=== PATIENT | male | born 1960 | race Caucasian/White ===

== ENCOUNTER 2018-03-02 06:25 | Day surgery (SDC) | payer BC, SELFPAY ==
[2018-03-02] VITALS (8 sets, daily range): BP systolic 76–127; BP diastolic 43–83; PULSE 51–74; RESP 15–21; TEMP 35.7–36.6; O2SAT 93–98
[2018-03-02] MEDS: Lactated Ringers 1,000 ML 30 ML IV (07:09)
[2018-03-02] MEDS: Bupivacaine 0.25% Pres-Free 30 ML VIAL (08:59)
--- NOTE | 2018-03-02 09:33 | W.PM.OP ---
Date of service: 03/02/18 Time of Service: 08:00 Operative Note DATE OF PROCEDURE: 03/02/18 PRE-OP DIAGNOSIS: Ventral incisional hernia POST-OP DIAGNOSIS: same PROCEDURE: Laparoscopic repair of ventral hernia with mesh SURGEON: Jaime Shepard POLE INCISOR OPERATOR: Carolina Mccormick ANESTHESIA: GETA and local ESTIMATED BLOOD LOSS: 1 PATHOLOGY: none sent COMPLICATIONS: None Patient was transported to: PACU Patient's condition: stable Implants: BARD Ventralight ST mesh with echo Lot #[id number] Indications: 57-year-old male returns to clinic for consideration of ventral hernia repair. He was seen in the fat past and found felt to have a umbilical hernia versus ventral hernia. Ultrasound did show defect superior to the umbilicus approximately 4 cm in greatest diameter, though it was difficult to assess due to body habitus. He had deferred repair at that time to after [employer] . He returns now in consideration of repair of his ventral hernia. Findings: Exploring the anterior abdominal wall laparoscopically 4 cm x 2 cm defect was found in the linea alba with a long axis oriented longitudinally in parallel to l linea alba. This was subsequently patched with a bard ventralight ST round mesh with diameter of 11.4 cm. Procedure Description: The patient was brought to the operating room positioned supine. An endotracheal tube was inserted and sedation was titrated for effect by the PRODUCTION CONTROL PLANNER. All bony prominences are padded the arms were extended 90 degrees. The abdomen was prepped with ChloraPrep block draped in standard sterile fashion. An appropriate timeout was taken reviewing the patient's identification, allergies, medications, procedure, and equipment. I began by making a stab incision in the left upper quadrant at the midclavicular line, subcostally. A Veress needle was then advanced of the abdomen with the position checked by saline drop test. The abdomen was then insufflated to 15 mmHg without apparent incident. A 5 mm trocar was then placed in the left upper quadrant subcostally at the anterior axillary line under direct visualization. The abdomen was inspected 180 degrees, and hernia defect was noted between the umbilicus and the start of the falciform ligament. The hernia sac contained preperitoneal fat which I reduced from the hernia. It was subsequently divided from the hernia sac using a Sonoscission harmonic device. To do this I I did place a 12 mm trocar in the left lower quadrant at the level of the umbilicus and anterior axillary line, again under direct visualization. With the hernia sac reduced, I then took down the falciform ligament to clean off the upper portion of the abdominal wall for about 8 cm. The anterior fat pad was stripped inferiorly to below the umbilicus bluntly, and any dangling fat strands were divided with a Sonoscision and removed from the abdomen. Hemostasis was obtained with a Sonoscision. The anterior abdominal wall cleaned I then measured the defect which I found to be 4 cm x 2 cm. I then chose the Bard ventral light ST with echo deployment round mesh measuring 11.4 cm in diameter. The mesh was soaked in saline briefly, rolled up, and advanced through the 12 mm trocar into the abdomen. The center of the hernia defect had been part marked when the defect was measured. Now a stab incision was made 1 cm above the defect center. A suture passer was advanced at an angle through the stab wound into the center of the hernia under direct visualization. I passed the ring and of the insufflation device for the echo deployment system to the suture passer intra-abdominally. The insufflation catheter was then withdrawn through the stab incision. It was then trimmed appropriately attached to the insufflation syringe and the echo deployment scaffolding was insufflated under direct visualization again. The mesh was pulled snug against the anterior abdominal wall with its center at the center of the hernia defect. A hemostat was then used to clip the insufflation catheter in place and sustain insufflation. I then used a [employer] Reliatack to place an outer row of absorbable tacks circumferentially on the mesh. Once this was done I desufflated the echo scaffolding and cut the insufflation catheter at the skin level. The echo scaffolding was then removed through the 12 mm trocar port without difficulty. I then placed a second row of tacks 2 cm in from the outer row creating a double crown effect. The mesh was in good position and laying flat against the abdominal wall with no defects noted between the tacks and centered on the hernia defect. I then inspected the abdomen I saw no evidence of bleeding the 12 mm trocar fascial defect was closed using [employer]idien trocar insert for fascial closure with an 0 Vicryl suture. The abdomen was then desufflated under direct visualization. Local was infiltrated around all incisions and into the fascia. The patient was extubated in the operating room, and brought to the postanesthesia care unit in good condition. All counts were reported as correct x2.
--- NOTE | 2018-03-02 09:37 | ROE_ITS ---
Date of service: 03/02/18 Time of Service: 08:00 Operative Note DATE OF PROCEDURE: 03/02/18 PRE-OP DIAGNOSIS: Ventral incisional hernia POST-OP DIAGNOSIS: same PROCEDURE: Laparoscopic repair of ventral hernia with mesh SURGEON: Jaime Shepard FUR DRY CLEANER: Carolina Mccormick ANESTHESIA: GETA and local ESTIMATED BLOOD LOSS: 1 PATHOLOGY: none sent COMPLICATIONS: None Patient was transported to: PACU Patient's condition: stable Implants: BARD Ventralight ST mesh with echo Lot #[id number] Indications: 57-year-old male returns to clinic for consideration of ventral hernia repair. He was seen in the fat past and found felt to have a umbilical hernia versus ventral hernia. Ultrasound did show defect superior to the umbilicus approximately 4 cm in greatest diameter, though it was difficult to assess due to body habitus. He had deferred repair at that time to after [employer] . He returns now in consideration of repair of his ventral hernia. Findings: Exploring the anterior abdominal wall laparoscopically 4 cm x 2 cm defect was found in the linea alba with a long axis oriented longitudinally in parallel to l linea alba. This was subsequently patched with a bard ventralight ST round mesh with diameter of 11.4 cm. Procedure Description: The patient was brought to the operating room positioned supine. An endotracheal tube was inserted and sedation was titrated for effect by the [employer] PIPE SUPERVISOR. All bony prominences are padded the arms were extended 90 degrees. The abdomen was prepped with ChloraPrep block draped in standard sterile fashion. An appropriate timeout was taken reviewing the patient's identification, allergies, medications, procedure, and equipment. I began by making a stab incision in the left upper quadrant at the midclavicular line, subcostally. A Veress needle was then advanced of the abdomen with the position checked by saline drop test. The abdomen was then insufflated to 15 mmHg without apparent incident. A 5 mm trocar was then placed in the left upper quadrant subcostally at the anterior axillary line under direct visualization. The abdomen was inspected 180 degrees, and hernia defect was noted between the umbilicus and the start of the falciform ligament. The hernia sac contained preperitoneal fat which I reduced from the hernia. It was subsequently divided from the hernia sac using a Sonoscission harmonic device. To do this I I did place a 12 mm trocar in the left lower quadrant at the level of the umbilicus and anterior axillary line, again under direct visualization. With the hernia sac reduced, I then took down the falciform ligament to clean off the upper portion of the abdominal wall for about 8 cm. The anterior fat pad was stripped inferiorly to below the umbilicus bluntly, and any dangling fat strands were divided with a Sonoscision and removed from the abdomen. Hemostasis was obtained with a Sonoscision. The anterior abdominal wall cleaned I then measured the defect which I found to be 4 cm x 2 cm. I then chose the Bard ventral light ST with echo deployment round mesh measuring 11.4 cm in diameter. The mesh was soaked in saline briefly, rolled up , and advanced through the 12 mm trocar into the abdomen. The center of the hernia defect had been part marked when the defect was measured. Now a stab incision was made 1 cm above the defect center. A suture passer was advanced at an angle through the stab wound into the center of the hernia under direct visualization. I passed the ring and of the insufflation device for the echo deployment system to the suture passer intra-abdominally. The insufflation catheter was then withdrawn through the stab incision. It was then trimmed appropriately attached to the insufflation syringe and the echo deployment scaffolding was insufflated under direct visualization again. The mesh was pulled snug against the anterior abdominal wall with its center at the center of the hernia defect. A hemostat was then used to clip the insufflation catheter in place and sustain insufflation. I then used a Cov[employer]ien Reliatack to place an outer row of absorbable tacks circumferentially on the mesh. Once this was done I desufflated the echo scaffolding and cut the insufflation catheter at the skin level. The echo scaffolding was then removed through the 12 mm trocar port without difficulty. I then placed a second row of tacks 2 cm in from the outer row creating a double crown effect. The mesh was in good position and laying flat against the abdominal wall with no defects noted between the tacks and centered on the hernia defect. I then inspected the abdomen I saw no evidence of bleeding the 12 mm trocar fascial defect was closed using [employer]ien trocar insert for fascial closure with an 0 Vicryl suture. The abdomen was then desufflated under direct visualization. Local was infiltrated around all incisions and into the fascia. The patient was extubated in the operating room, and brought to the postanesthesia care unit in good condition. All counts were reported as correct x2.
--- NOTE | 2018-03-02 10:11 | PDOC.DSDIS_ITS ---
Discharge Plan Disposition Patient Disposition: HOME Condition: Good Discharge Details Reason For Visit: EPIGASTRIC VENTRAL HERNIA Attending Provider: Jaime Shepard Primary Care Provider: Kaushal Noriega Home Meds and New Rx's Prescriptions: New acetaminophen [Tylenol] 325 mg Tablet 650 mg PO Q4H PRN PRNQty: 0 RF: 0 tramadol 50 mg Tablet 50 mg PO Q6H PRN PRNQty: 12 RF: 0 Continue tamsulosin 0.4 MG capsule 0.4 mg PO HS RF: 0 cholecalciferol (vitamin D3) [Vitamin D3] 2,000 UNIT capsule 2,000 unit PO DAILY RF: 0 magnesium oxide 400 MG capsule 400 mg PO DAILY RF: 0 fluticasone 16 GM spray,suspension 1 spr NS PRN PRNRF: 0 atorvastatin 20 MG tablet 20 mg PO DAILY AM RF: 0 amlodipine 5 MG tablet 5 mg PO DAILY AM RF: 0 krill oil 500 MG capsule 1 tab PO DAILY RF: 0 diphenhydramine-acetaminophen [Tylenol PM Extra Strength] 1 EACH tablet 2 tab PO HS RF: 0 Discharge Instructions Instructions: Laparoscopic Herniorrhaphy (DC) Additional Instructions: Dr. Jaime Shepard Post-Operative Discharge Instructions 1. Because there will be medication in your system for the next 24 hours, you may feel a little sleepy. Your coordination will be affected. Therefore: * Do not drive or operate dangerous equipment for 24 hours. * Do not drink alcohol beverages for 24 hours (not even beer). * Plan to go home and rest for the day. Restrictions: * Do not lift over 20lbs for 2 weeks. * No strenuous bending or twisting for 2 weeks, if it hurts stop. * No baths, you can shower. Let warm soapy water run over wound, then pat wound dry. Activity: * The day of surgery spend most of the day resting in a comfortable bed or recliner. 2-3 times during the day get up and walk around the house. * The day after surgery, or after your discharge, walk at least 3 times a day and spend increasing amounts of time walking and sitting up. If you are tired rest, but keep moving as able. * Continue Incentive Spirometry at home if you were performing this therapy in the hospital. Diet: * Resume home diet as tolerated. * Start with a light diet, your appetite will improve with time. * Drink at least 4-6 glasses of water per day to keep hydrated. Wound Care: * Leave skin glue in place until it wears off * You may cover the wound with a dry sterile dressing to keep clothing from rubbing against the wound. Continue all your regular medications unless directed otherwise. Call the office or the [facility] Green Pipefitter , If you have: * Pain not controlled with pain medication. * Nausea and vomiting. * Temperature greater than 101 degrees Fahrenheit. * Drainage from your wound that soaks through your dressing. *No more than 4000 milligrams of Tylenol in 24 hours. Narcotic pain medication can be constipating, if you have not had a bowel movement within 3 days use a laxative, I recommend Milk of Magnesia (MOM) 1oz. every 6 hrs until you have a bowel movement. I understand the above instructions and have no questions. _ Signature of Patient or Responsible Adult Escort Date/Time _ Name of Responsible Adult Escort _ Signature of Nurse Date/Time Revised 08/12/10 Referrals: Jaime Shepard DO [ [facility] STAFF PHYSICIAN] - 03/17/18 10:00 am (Follow up after Lap Ventral hernia repair) Activity:: see instructions Remove Dressings/Wound Care:: Do Not Remove Shower/Bathe:: 24 hours Diet:: As Tolerated Discharge Orders Discharge Orders: Discharge Order (Routine); Ordered 03/02/18 Ordered By: Jaime Shepard DS: Diagnosis Discharge Diagnosis (1) Ventral hernia: Start date: 03/02/18 Start time: 10:09 Status: Acute Asessment and Plan: Laparoscopic Ventral Hernia repair: Operative Note: The patient was brought to the operating room positioned supine. An endotracheal tube was inserted and sedation was titrated for effect by the COMMERCIAL MAKEUP ARTIST. All bony prominences are padded the arms were extended 90 degrees. The abdomen was prepped with ChloraPrep block draped in standard sterile fashion. An appropriate timeout was taken reviewing the patient's identification, allergies, medications, procedure, and equipment. I began by making a stab incision in the left upper quadrant at the midclavicular line, subcostally. A Veress needle was then advanced of the abdomen with the position checked by saline drop test. The abdomen was then insufflated to 15 mmHg without apparent incident. A 5 mm trocar was then placed in the left upper quadrant subcostally at the anterior axillary line under direct visualization. The abdomen was inspected 180 degrees, and hernia defect was noted between the umbilicus and the start of the falciform ligament. The hernia sac contained preperitoneal fat which I reduced from the hernia. It was subsequently divided from the hernia sac using a Sonoscission harmonic device. To do this I I did place a 12 mm trocar in the left lower quadrant at the level of the umbilicus and anterior axillary line, again under direct visualization. With the hernia sac reduced, I then took down the falciform ligament to clean off the upper portion of the abdominal wall for about 8 cm. The anterior fat pad was stripped inferiorly to below the umbilicus bluntly, and any dangling fat strands were divided with a Sonoscision and removed from the abdomen. Hemostasis was obtained with a Sonoscision. The anterior abdominal wall cleaned I then measured the defect which I found to be 4 cm x 2 cm. I then chose the Bard ventral light ST with echo deployment round mesh measuring 11.4 cm in diameter. The mesh was soaked in saline briefly, rolled up , and advanced through the 12 mm trocar into the abdomen. The center of the hernia defect had been part marked when the defect was measured. Now a stab incision was made 1 cm above the defect center. A suture passer was advanced at an angle through the stab wound into the center of the hernia under direct visualization. I passed the ring and of the insufflation device for the echo deployment system to the suture passer intra-abdominally. The insufflation catheter was then withdrawn through the stab incision. It was then trimmed appropriately attached to the insufflation syringe and the echo deployment scaffolding was insufflated under direct visualization again. The mesh was pulled snug against the anterior abdominal wall with its center at the center of the hernia defect. A hemostat was then used to clip the insufflation catheter in place and sustain insufflation. I then used a [employer] Reliatack to place an outer row of absorbable tacks circumferentially on the mesh. Once this was done I desufflated the echo scaffolding and cut the insufflation catheter at the skin level. The echo scaffolding was then removed through the 12 mm trocar port without difficulty. I then placed a second row of tacks 2 cm in from the outer row creating a double crown effect. The mesh was in good position and laying flat against the abdominal wall with no defects noted between the tacks and centered on the hernia defect. I then inspected the abdomen I saw no evidence of bleeding the 12 mm trocar fascial defect was closed using [employer]ien trocar insert for fascial closure with an 0 Vicryl suture. The abdomen was then desufflated under direct visualization. Local was infiltrated around all incisions and into the fascia. The patient was extubated in the operating room, and brought to the postanesthesia care unit in good condition. All counts were reported as correct x2
[2018-03-02] MEDS: Acetaminophen 500 MG TAB 1000 MG PO (10:12)
[2018-03-02] MEDS: traMADol 50 MG TAB PO (11:11)
== END 2018-03-02 11:43 | disposition home or self-care (01) ==
PROVIDERS: PCP Family Medicine; Visit Provider Surgery
PROC: 0WQF4ZZ Repair Abdominal Wall, Percutaneous Endoscopic Approach (ICD-10-PCS; CPT 49654; principal; 2018-03-02 07:30)
DX: K43.9 Ventral hernia without obstruction or gangrene (principal); G47.33 Obstructive sleep apnea (adult) (pediatric); I10 Essential (primary) hypertension
CPT/HCPCS: 49654; C1781; J0690; J1100; J1885; J2405

== ENCOUNTER 2019-05-16 13:02 | Outpatient (REF) | payer BC, SELFPAY ==
[2019-05-16 14:31] LABS: Anion Gap 10.8 mmol/L (3-11); BUN 19 mg/dL (7-18); CO2 25.2 mmol/L (21.0-32.0); CREATININE 0.87 mg/dL (0.70-1.30); Calcium 8.4 mg/dL (8.5-10.1); Calculated LDL 117 mg/dL (<100); Chloride 105 mmol/L (98-107); Cholesterol 183 mg/dL (<200); Glucose 112 mg/dL (74-106); HDL Cholesterol 36 mg/dL (40-60); Potassium 4.3 mmol/L (3.5-5.1); Sodium 141 mmol/L (136-145); Triglyceride 154 mg/dL (<150)
[2019-05-16 15:35] LABS: Hemoglobin A1C 6.1 % (3.8-5.6)
== END 2019-05-16 13:22 ==
LOC: NCHCN 13:02
PROVIDERS: PCP Family Medicine; Visit Provider Family Medicine
DX: I10 Essential (primary) hypertension (principal); E78.5 Hyperlipidemia, unspecified; Z13.1 Encounter for screening for diabetes mellitus
CPT/HCPCS: 80048; 80061; 83036

== ENCOUNTER 2020-06-07 09:12 | Outpatient (CLI) | payer BC, SELFPAY ==
--- NOTE | 2020-06-07 08:45 | DI.RAD_ITS ---
EXAM: XR THUMB RT CLINICAL HISTORY: right thumb. TECHNIQUE: 2D digital imaging was performed. COMPARISON: CR LEFT THUMB from 03/03/2012 FINDINGS: There is no evidence fracture or dislocation. There are mild degenerative changes at the articulatio n between the base of the thumb metacarpal and trapezium. The metacarpophalangeal joint and interpha langeal joint of the thumb appear unremarkable. Bone density is normal. No lytic osseous lesions ev ident.. IMPRESSION: DATA REPOSITORY: RADIATION DOSE DELIVERED:
== END 2020-06-07 09:13 | disposition home or self-care (01) ==
LOC: DIORS 09:12
PROVIDERS: PCP Family Medicine; Referring Provider Family Medicine; Visit Provider Student in an Organized Health Care Education/Training Program
DX: M18.11 Unilateral primary osteoarthritis of first carpometacarpal joint, right hand (principal)
CPT/HCPCS: 73140

== ENCOUNTER 2020-08-24 16:01 | Outpatient (REF) | payer BC, SELFPAY ==
[2020-08-24 16:00] LABS: CREATININE 0.8 mg/dL (0.70-1.30); Magnesium 2.1 mg/dL (1.8-2.4)
[2020-08-24 16:25] LABS: Hemoglobin A1C 5.8 % (<5.7)
== END 2020-08-24 16:02 | disposition home or self-care (01) ==
LOC: NCHCN 16:01
PROVIDERS: PCP Family Medicine; Visit Provider Family Medicine
DX: I10 Essential (primary) hypertension (principal); E83.42 Hypomagnesemia; R73.03 Prediabetes
CPT/HCPCS: 82565; 83036; 83735

== ENCOUNTER 2020-11-05 14:05 | Emergency (ER) | payer BC, SELFPAY ==
[2020-11-05 14:14] VITALS: BP 153/101; PULSE 89; RESP 16; TEMP 36.4; O2SAT 98
--- NOTE | 2020-11-05 14:30 | DI.RAD_ITS ---
Exam(s) XR KNEE LT 4V AP,LAT,LUCERO,PAT EXAM: XR KNEE LT 4V AP,LAT,LUCERO,PAT CLINICAL HISTORY: trauma, left knee pain. TECHNIQUE: 2D digital imaging was performed. COMPARISON: No exams were available for comparison FINDINGS: There is no evidence of acute fracture but there is significant size joint effusion-possible hemarthr osis. This may signify an internal derangement or and/or occult fracture. IMPRESSION: DATA REPOSITORY: RADIATION DOSE DELIVERED:
--- NOTE | 2020-11-05 14:32 | ED.GENADUL_ITS ---
Discharge Plan Disposition Patient Disposition: HOME Condition: Stable Discharge Details Clinical Impression: Closed fracture of tibial plateau Primary Care Provider: Kaushal Noriega ED Provider: Royer Song Home Meds and New Rx's Prescriptions: Continued tamsulosin 0.4 MG capsule 0.4 mg PO HS RF: 0 cholecalciferol (vitamin D3) [Vitamin D3] 2,000 UNIT capsule 2,000 unit PO DAILY RF: 0 magnesium oxide 400 MG capsule 400 mg PO DAILY RF: 0 fluticasone propionate 16 GM spray,suspension 1 spr NS PRN PRNRF: 0 atorvastatin 20 MG tablet 20 mg PO DAILY AM RF: 0 amlodipine 5 MG tablet 5 mg PO DAILY AM RF: 0 krill oil 500 MG capsule 1 tab PO DAILY RF: 0 diphenhydramine-acetaminophen [Tylenol PM Extra Strength] 1 EACH tablet 2 tab PO HS RF: 0 acetaminophen [Tylenol] 325 mg Tablet 650 mg PO Q4H PRN PRNQty: 0 RF: 0 tramadol 50 mg Tablet 50 mg PO Q6H PRN PRNQty: 12 RF: 0 Discharge Instructions Instructions: Leg Fracture (ED), Knee Immobilizer (ED) Additional Instructions: You may be toe-touch weightbearing. Use of crutches and knee immobilizer while awake and out of bed. Apply ice to area to reduce discomfort. Elevate above the level of the heart to reduce pain and swelling. Continue to ice 20 to 30 minutes at a time. Tylenol and/or ibuprofen as needed for pain. I discussed your CT scan with Dr. Loera this evening. Please follow-up with Dr. Loera in clinic. The office #[phone]. Call if you do not hear from them in the next 2 office days. Please return immediately to the emergency department if you develop any new or worsening symptoms, if your condition does not improve as expected, or if you become otherwise concerned. It is extremely important that you call soon as possible to make an appointment to be seen in follow-up for this visit by your primary care doctor and your orthopedic surgeon. Referrals: Cesar Loera MD [ [facility] STAFF PHYSICIAN] - Kaushal Noriega [Primary Care Provider] - Discharge Data Discharge Date/Time-TO BE ENTERED AT DEPARTURE: 11/05/20 17:30 Medical Decision Making <Willa Rockwell MD - Last Filed: 11/12/20 09:45> Kaushal Ledbetter is a 60 y/o man with history of hypertension, hyperlipidemia who presented to emergency department with left knee pain after mechanical fall landing on left knee just prior to arrival. On exam patient is well and nontoxic-appearing. There is tenderness to palpation over the left patella. Effusion of the left knee is present. Left lower extremity is neurovascularly intact. Patient is able to range the left knee, range of motion is somewhat limited secondary to pain. Exam/history at this time is not consistent with vascular injury, DVT, septic arthritis or other acute infectious pathology. Plan for x-rays. X-rays show significant size joint effusion, possible hemarthrosis which may signify internal derangement (I discussed this with radiology, meaning ligamentous injury) and/or occult fracture. Plan for CT need for further evaluation for occult fracture. Patient signed out to Dr. Song at time of shift change with CT knee pending. Medical Records Medical records reviewed: Yes I reviewed the patient's medical records. Imaging Data Radiologic Study: Attestation: I personally reviewed and interpreted this imaging study as follows: Radiologist's impression: EXAM: XR KNEE LT 4V AP,LAT,LUCERO,PAT CLINICAL HISTORY: trauma, left knee pain. TECHNIQUE: 2D digital imaging was performed. COMPARISON: No exams were available for comparison FINDINGS: There is no evidence of acute fracture but there is significant size joint effusion-possible hemarthrosis. This may signify an internal derangement or and/or occult fracture. <Royer Song MD - Last Filed: 11/05/20 16:57> Reviewed CT scan with Dr. Loera with tibial plateau fracture. Will make patient nonweightbearing with toe-touch only, on crutches and knee immobilizer. He will follow-up in orthopedic office. He is stable for outpatient management. HPI <Willa Rockwell MD - Last Filed: 11/12/20 09:45> General Mode of arrival: wheelchair . Date/Time Provider Initiated Documentation: 11/05/20 14:26 . Limitations to Documentation: no limitations . Information obtained by: patient, RN notes reviewed and old records reviewed . HPI Narrative: Kaushal Ledbetter is a 60-year-old man with history of hyperlipidemia, hypertension, obstructive sleep apnea presenting to emergency department with left knee pain. Patient reports that just prior to arrival he was golfing, when he slipped on wet grass and fell, initially landing entirely on his left knee. Patient reports that he did not have pain directly after the fall, but when he went to stand up he felt something move in my knee. Patient reports that he did walk initially, but pain began to increase. Patient reports that knee now seems swollen to him. He reports that all of his pain is in the anterior aspect of his left knee. He denies any other pain, numbness, weakness, any other injury. Patient states that he did not hit his head, no loss of consciousness. Patient states that he was previously in his usual state of health. No fevers, cough, shortness of breath, vomiting, diarrhea, rash. Related Data Home Medications Medication Instructions Recorded Confirmed fluticasone propionate 1 spr NS PRN PRN 02/08/13 11/05/20 amlodipine 5 mg PO DAILY AM 10/15/16 11/05/20 atorvastatin 20 mg PO DAILY AM 10/15/16 11/05/20 diphenhydramine-acetaminophen 2 tab PO HS 10/15/16 11/05/20 [Tylenol PM Extra Strength] krill oil 1 tab PO DAILY 10/15/16 11/05/20 cholecalciferol (vitamin D3) 2,000 unit PO DAILY 08/31/17 11/05/20 [Vitamin D3] magnesium oxide 400 mg PO DAILY 08/31/17 11/05/20 tamsulosin 0.4 mg PO HS tab-cap 08/31/17 11/05/20 acetaminophen [Tylenol] 650 mg PO Q4H PRN PRN #0 tab 03/02/18 11/05/20 tramadol 50 mg PO Q6H PRN PRN #12 tab 03/02/18 11/05/20 Previous Rx's Medication Instructions Recorded acetaminophen [Tylenol] 650 mg PO Q4H PRN PRN #0 tab 03/02/18 tramadol 50 mg PO Q6H PRN PRN #12 tab 03/02/18 Allergies Allergy/AdvReac Type Severity Reaction Status Date / Time No Known Allergies Allergy Unverified 11/05/20 14:19 General Stated Complaint: Orthopedic DENISE: 4 Review of Systems <Willa Rockwell MD - Last Filed: 11/12/20 09:45> Narrative: Constitutional: denies fevers Eyes: denies eye pain ENT: denies ear pain, dental pain, sore throat Cardiovascular: denies chest pain, edema Respiratory: denies SOB, cough GI: denies abdominal pain, vomiting, diarrhea : denies flank pain MSK: denies back pain, neck pain, myalgias, reports left-sided knee pain/swelling Skin: denies rash Neuro: denies headaches, numbness, weakness PFSH <Willa Rockwell MD - Last Filed: 11/12/20 09:45> Medical History Alcohol dependence in remission Arthritis of carpometacarpal (CMC) joint of left thumb Hyperlipidemia Hypertension Hypomagnesemia Impingement syndrome, shoulder, left Obesity JESSICA (obstructive sleep apnea) Pain in joint of left wrist Pain in joint of right wrist Prediabetes Syncope Umbilical hernia Ventricular tachycardia Surgical History Repair of inguinal hernia pt unsure of date/year of surgery.HE S/P ventral herniorrhaphy (03/02/18) dr crowell Social History Smoking/Tobacco Use Status: Former Tobacco Use Smoking risk assessment performed?: Yes Alcohol Intake: former Drug use: Current Sobriety Substance use type: does not use Current gender identity: male Do you feel safe in your relationship?: Yes Exam <Willa Rockwell MD - Last Filed: 11/12/20 09:45> Narrative Exam Narrative: Constitutional: well and [id number], pleasant, conversing normally HENT: head atraumatic/normocephalic/normal inspection, mucous membranes moist Eyes: conjunctiva normal, sclera normal, pupils 3mm b/l Neck: no stridor, normal ROM, trachea midline Chest: normal inspection Resp: normal work of breathing, LCTAB Cardio: normal rate, normal rhythm, no murmur appreciated GI: abdomen soft, non-tender, non-distended Back: normal inspection, no rash Skin: warm, dry, normal color, no rash Neuro: alert, not altered, grossly non-focal, normal tone Ext: no edema Psych: normal mood, normal affect, normal behavior Course <Willa Rockwell MD - Last Filed: 11/12/20 09:45> Vital Signs Vital signs: Vital Signs Temperature 36.4 C L 11/05/20 14:14 Pulse 89 11/05/20 14:14 Respiratory Rate 16 11/05/20 14:14 Blood Pressure 153/101 H 11/05/20 14:14 Pulse Oximetry 98 11/05/20 14:14 Temperature 36.4 C L 11/05/20 14:14 Temperature Source Skin 11/05/20 14:14 Pulse 89 11/05/20 14:14 Respiratory Rate 16 11/05/20 14:14 Respiratory Effort Non-Labored 11/05/20 14:14 Blood Pressure 153/101 H 11/05/20 14:14 Blood Pressure Position Sitting 11/05/20 14:14 Pulse Oximetry 98 11/05/20 14:14 Oxygen Delivery Method Room Air 11/05/20 14:14 Oxygen Flow Rate 0 11/05/20 14:14 Pain Level 5 11/05/20 14:14 Sign Out <Willa Rockwell MD - Last Filed: 11/12/20 09:45> Sign Out Data: Sign Out Comment: Patient signed out to Dr. Song at time of shift change with CT knee pending. Last updated by Willa Rockwell MD at 11/05/20 15:44
--- NOTE | 2020-11-05 15:15 | DI.CT_ITS ---
Exam(s) CT LOWER EXTREMITY LT WO EXAM: CT LOWER EXTREMITY LT WO CLINICAL HISTORY: trauma, knee pain. TECHNIQUE: Imaging Protocol: Axial computed tomography images with coronal and sagittal reformatted images were created and reviewed. COMPARISON: CR XR KNEE LT 4V AP,LAT,LUCERO,PAT from 11/05/2020 FINDINGS: There is a large hemarthrosis. There is soft tissue swelling particularly around the medial aspect o f the knee. There is a nondisplaced fracture extending through the tibial spines. There is a compre ssion at the posterior aspect of the lateral tibial plateau with slight separation at the articular s urface and slight depression. There is a nondisplaced vertically oriented fracture in the sagittal p benoit seen in the posterior tibia extending to the lateral cortex. Distal femur and proximal fibula a ppear intact. IMPRESSION: Posterior lateral tibial plateau fracture with mild depression and separation at the articular surfac e. Nondisplaced fracture through the tibial spines. RADIATION DOSE DELIVERED: 249.97mGy.cm Total DLP DATA REPOSITORY: All CT scans at this facility are submitted to the National Radiology Data Registry (NRDR) Dose Index Registry (DIR) with the [employer] (A[employer]). RADIATION OPTIMIZATION: All CT scans at this facility use at least one of these dose optimization te chniques: automated exposure control; mA and/or kV adjustment per patient size (includes targeted exa ms where dose is matched to clinical indication); or iterative reconstruction.
[2020-11-05 15:16] VITALS: BP 127/88; PULSE 93; RESP 18; O2SAT 95
[2020-11-05] MEDS: Ibuprofen 600 MG TAB PO (15:47)
--- NOTE | 2020-11-05 17:06 | DI.VRAD_ITS ---
PROCEDURE INFORMATION: Exam: CT Left Lower Extremity Without Contrast, Knee Exam date and time: 11/05/2020 4:31 PM Age: 60 years old Clinical indication: Injury or trauma; Fall; Blunt trauma; Left; Patient HX: Trauma, knee pain TECHNIQUE: Imaging protocol: CT of the Left lower extremity without contrast was performed. Exam focused on the knee. COMPARISON: CR XR KNEE LT 4V AP,LAT,LUCERO,PAT 11/05/2020 2:58 PM FINDINGS: Bones/joints: Mildly depressed comminuted intra-articular fracture of the posterolateral tibial plateau. There is a vertical component to the fracture that extends along the posterior cortex of the tibia and terminates in the posterior metadiaphysis. Minimally displaced intra-articular fracture of the medial tibial plateau extending to the base of the anterior tibial spine. Large effusion with a lipohemarthrosis. Marginal osteophytes of the patella. Soft tissues: Markedly heterogeneous appearance of the anterior cruciate ligament, suspicious for full-thickness tear of the ACL which is commonly seen with this patient's pattern of fracture. Marked thickening of the medial soft tissues suspicious for high-grade or full-thickness MCL tear IMPRESSION: 1. Mildly depressed comminuted fracture posterior lateral tibial plateau and minimally displaced intra-articular fracture anteromedial tibial plateau 2. Findings highly suspicious for full-thickness ACL tear and high-grade partial or full-thickness MCL tear 3. Large lipohemarthrosis Dictated and Authenticated by: Stacy Hinojosa MD. Ordering:RUTH Crouch MD
[2020-11-05 17:45] VITALS: BP 127/88; PULSE 93; RESP 18; O2SAT 95
== END 2020-11-05 17:30 | disposition home or self-care (01) ==
PROVIDERS: Emergency Provider Emergency Medicine; PCP Family Medicine
DX: S82.141A Displaced bicondylar fracture of right tibia, initial encounter for closed fracture (principal); W01.0XXA Fall on same level from slipping, tripping and stumbling without subsequent striking against object, initial encounter
CPT/HCPCS: 29505; 99284; 73564; 73700

== ENCOUNTER 2020-11-15 10:55 | Outpatient (CLI) | payer BC, SELFPAY ==
--- NOTE | 2020-11-15 08:15 | DI.RAD_ITS ---
Exam(s) XR KNEE LT 2V AP,LAT EXAM: XR KNEE LT 2V AP,LAT CLINICAL HISTORY: f/u L tibial plateau frx. TECHNIQUE: 2D digital imaging was performed. COMPARISON: CR XR KNEE LT 4V AP,LAT,LUCERO,PAT from 11/05/2020 FINDINGS: Tibial plateau fracture again noted. No further displacement. Joint effusion-hemarthrosis again not ed. No new fractures evident. IMPRESSION: DATA REPOSITORY: RADIATION DOSE DELIVERED:
== END 2020-11-15 10:56 | disposition home or self-care (01) ==
LOC: DIORS 10:56
PROVIDERS: PCP Family Medicine; Referring Provider Family Medicine; Visit Provider Student in an Organized Health Care Education/Training Program
DX: S82.142D Displaced bicondylar fracture of left tibia, subsequent encounter for closed fracture with routine healing (principal)
CPT/HCPCS: 73560

== ENCOUNTER 2020-12-03 09:52 | Outpatient (CLI) | payer BC, SELFPAY ==
--- NOTE | 2020-12-03 09:30 | DI.RAD_ITS ---
Exam(s) XR KNEE LT 2V AP,LAT EXAM: XR KNEE LT 2V AP,LAT CLINICAL HISTORY: CLOSED FRACTURE OF TIBIAL PLATEAU. TECHNIQUE: 2D digital imaging was performed. COMPARISON: CR XR KNEE LT 2V AP,LAT from 11/15/2020 FINDINGS: Compared to 11/15/2020 there is again noted the previously described tibial plateau for fracture. As sociated joint effusion in the suprapatellar bursa is again noted, unchanged. Tibial plateau fractur e of appears to be mostly at level the tibial spines and on the frontal view there is a burning clear orientated subtle nondisplaced line in the lateral aspect of the metaphysis and proximal diaphysis w hich may be a fracture line extension. This is only seen on the frontal view. There is possibly carmen t this is a nutrient artery canal. IMPRESSION: DATA REPOSITORY: RADIATION DOSE DELIVERED:
--- NOTE | 2020-12-03 09:45 | DI.RAD_ITS ---
Exam(s) XR FOOT LT LIMITED EXAM: XR FOOT LT LIMITED CLINICAL HISTORY: s/p fall. TECHNIQUE: 2D digital imaging was performed. COMPARISON: No exams were available for comparison FINDINGS: AP and lateral views reveal no evidence of obvious fracture or diastasis of the Lisfranc joint. No o bvious metatarsal base fractures evident on this limited two view study. No fracture of the phalange s nor more proximal bones noted foot. Inferior calcaneal spur measuring 6 millimeters is noted. The re is no radiopaque foreign body. IMPRESSION: As above. No obvious fracture evident on this limited two view study (there is no oblique view). DATA REPOSITORY: RADIATION DOSE DELIVERED:
== END 2020-12-03 09:53 | disposition home or self-care (01) ==
PROVIDERS: PCP Family Medicine; Referring Provider Family Medicine; Visit Provider Physician Assistant Surgical
DX: M77.32 Calcaneal spur, left foot (principal); S82.142D Displaced bicondylar fracture of left tibia, subsequent encounter for closed fracture with routine healing; W19.XXXD Unspecified fall, subsequent encounter
CPT/HCPCS: 73560; 73620

== ENCOUNTER 2020-12-31 09:54 | Outpatient (CLI) | payer BC, SELFPAY ==
--- NOTE | 2020-12-31 09:30 | DI.RAD_ITS ---
Exam(s) XR KNEE LT 2V AP,LAT EXAM: XR KNEE LT 2V AP,LAT INDICATION: L TIBIAL PLATEAU FRACTURE. COMPARISON: CR XR KNEE LT 2V AP,LAT from 11/15/2020 CR XR KNEE LT 2V AP,LAT from 11/15/2020 CR XR KNEE LT 2V AP,LAT from 12/03/2020 TECHNIQUE: 2D digital imaging was performed. FINDINGS: The fractureat the tibial spines is faintly visible. There has been increased healing when compared with previous exam. A small joint effusion remains present. DATA REPOSITORY: RADIATION DOSE DELIVERED:
== END 2020-12-31 09:55 | disposition home or self-care (01) ==
LOC: DIORS 09:54
PROVIDERS: PCP Family Medicine; Referring Provider Family Medicine; Visit Provider Physician Assistant
DX: S82.142D Displaced bicondylar fracture of left tibia, subsequent encounter for closed fracture with routine healing (principal); X58.XXXD Exposure to other specified factors, subsequent encounter
CPT/HCPCS: 73560

== ENCOUNTER 2021-01-28 10:07 | Outpatient (CLI) | payer BC, SELFPAY ==
--- NOTE | 2021-01-28 09:45 | DI.RAD_ITS ---
Exam(s) XR KNEE LT 2V AP,LAT EXAM: XR KNEE LT 2V AP,LAT CLINICAL HISTORY: f/u L tibial plateau frx TECHNIQUE: COMPARISON: CR XR KNEE LT 2V AP,LAT from 12/31/2020 FINDINGS: Two views were obtained. Previous described fracture of the proximal tibia is again noted, no gross interval change in alignment of fracture fragments comparison with examination December 31. IMPRESSION: RADIATION DOSE DELIVERED: Total DLP
== END 2021-01-28 10:08 | disposition home or self-care (01) ==
LOC: DIORS 10:08
PROVIDERS: PCP Family Medicine; Referring Provider Family Medicine; Visit Provider Student in an Organized Health Care Education/Training Program
DX: S82.141D Displaced bicondylar fracture of right tibia, subsequent encounter for closed fracture with routine healing (principal)
CPT/HCPCS: 73560

== ENCOUNTER 2021-12-30 17:31 | Outpatient (REF) | payer BC, SELFPAY ==
[2021-12-30 20:54] LABS: CREATININE 1.1 mg/dL (0.70-1.30); Estimated GFR 75.43 (mL/min/1.73m2); Magnesium 2.1 mg/dL (1.8-2.4)
[2021-12-31 18:14] LABS: PSA, Screening 5.6 ng/mL (<=4.5)
== END 2021-12-30 17:32 | disposition home or self-care (01) ==
LOC: NCHCN 17:31
PROVIDERS: PCP Family Medicine; Visit Provider Family Medicine
DX: E83.42 Hypomagnesemia (principal); Z00.00 Encounter for general adult medical examination without abnormal findings; Z12.5 Encounter for screening for malignant neoplasm of prostate; R39.89 Other symptoms and signs involving the genitourinary system; I10 Essential (primary) hypertension
CPT/HCPCS: 84153; 82565; 83735

== ENCOUNTER 2022-02-03 11:18 | Outpatient (CLI) | payer BC, SELFPAY ==
--- NOTE | 2022-02-03 11:00 | DI.RAD_ITS ---
Exam(s) XR KNEE RT 3V AP,LAT,LUCERO EXAM: XR KNEE RT 3V AP,LAT,LUCERO CLINICAL HISTORY: eval R knee pain and swelling. TECHNIQUE: 2D digital imaging was performed of the right knee. Three views obtained. AP, lateral an d PA tunnel views were obtained. COMPARISON: None. FINDINGS: BONES: No acute fracture is present. No bony destructive lesion is seen. JOINTS: The knee is normally aligned. There is a small joint effusion. Mild degenerative changes are seen in the right knee with periarticular spurring in the medial femoral tibial and patellofemoral j oint. SOFT TISSUE: Normal. IMPRESSION: Mild degenerative changes of the right knee. DATA REPOSITORY: RADIATION DOSE DELIVERED:
== END 2022-02-03 11:19 | disposition home or self-care (01) ==
LOC: DIORS 11:18
PROVIDERS: PCP Family Medicine; Referring Provider Family Medicine; Visit Provider Student in an Organized Health Care Education/Training Program
DX: M17.11 Unilateral primary osteoarthritis, right knee (principal)
CPT/HCPCS: 73562

== ENCOUNTER 2022-03-26 08:36 | Day surgery (SDC) | payer BC, SELFPAY ==
[2022-03-26] VITALS (10 sets, daily range): BP systolic 127–200; BP diastolic 76–116; PULSE 60–83; RESP 12–18; TEMP 36–36.5; TEMPC 36; O2SAT 94–97; BMI 35.1
--- NOTE | 2022-03-26 07:40 | PDOC.DSDIS_ITS ---
Date of service: 03/26/22 Time of Service: 10:28 Discharge Plan Disposition Patient Disposition: Home Discharge Details Reason For Visit: Right [facility] DJD Attending Provider: Cesar Loera Primary Care Provider: Kaushal Noriega Home Meds and New Rx's Prescriptions: New acetaminophen 500 mg tablet 500 mg PO Q6H PRN (Reason: pain) Qty: 60 2RF ibuprofen 600 mg tablet 600 mg PO TID PRN (Reason: pain) Qty: 60 0RF oxycodone 5 mg tablet 5 mg PO Q6H PRN (Reason: severe post-operative pain) Qty: 6 0RF Rx Instructions: Take one tablet up to every 6 hours as needed for severe pain Continued tamsulosin 0.4 MG capsule 0.4 mg PO HS fluticasone propionate 16 GM spray,suspension 1 spr NS PRN PRN atorvastatin 20 MG tablet 20 mg PO DAILY AM amlodipine 5 MG tablet 5 mg PO DAILY AM diphenhydramine-acetaminophen [Tylenol PM Extra Strength] 1 EACH tablet 2 tab PO HS Discontinued ibuprofen 600 mg tablet 600 mg PO Q8H PRN acetaminophen [Tylenol] 325 mg Tablet 650 mg PO Q4H PRN PRNQty: 0 0RF No Action naproxen sodium [Aleve] 220 mg Tablet 440 mg PO BID PRN Discharge Instructions Additional Instructions: Thumb [facility] Discharge Instructions Activity: You should keep the hand/thumb elevated as much as possible for the first few days. You may use the other fingers as tolerated but avoid trying to do too much too soon. You may perform light activities with the splint in place. Dressing/Cast: Your splint should stay in place at all times. Do NOT get it wet. You may loosen the EBENEZER wrap if you feel it is too tight and then rewrap more loosely. Medications: - You should take Tylenol and Ibuprofen for baseline pain control. - You have Oxycodone for breakthrough pain. - You may apply ice over the thumb. Follow-up: 10-14 days Stand Alone Forms: Anesthesia Discharge Inst., Analisa Mcfarland ([facility]) Referrals: Cesar Loera MD [ [facility] STAFF PHYSICIAN] - Equipment/Supplies: Splint Activity:: Elevate Remove Dressings/Wound Care:: Do Not Remove Shower/Bathe:: Cover Diet:: As Tolerated Discharge Orders Discharge Orders: Discharge Order (Routine); Ordered 03/26/22 Ordered By: [place]ale [place]
--- NOTE | 2022-03-26 09:23 | ANES.PREOP_ITS ---
General Info Height: 5 ft 9 in Surgical Procedure: Operation Date: 03/26/22 10:55 Proposed Procedure Side Surgeon p Thumb CMC Arthroplasty Right Cesar Loera MD Meds Allergies and Home Medications Allergies Allergy/AdvReac Type Severity Reaction Status Date / Time No Known Allergies Allergy Verified 02/24/22 09:51 Home Medication Medication Instructions Recorded fluticasone propionate 50 1 spr NS PRN PRN 02/08/13 mcg/actuation nasal spray,suspension amlodipine 5 mg tablet 5 mg PO DAILY AM 10/15/16 atorvastatin 20 mg tablet 20 mg PO DAILY AM 10/15/16 diphenhydramine 25 2 tab PO HS 10/15/16 mg-acetaminophen 500 mg tablet (Tylenol PM Extra Strength) tamsulosin 0.4 mg capsule 0.4 mg PO HS 08/31/17 acetaminophen 500 mg tablet 500 mg PO Q6H PRN pain #60 tabs 03/26/22 ibuprofen 600 mg tablet 600 mg PO TID PRN pain #60 tabs 03/26/22 oxycodone 5 mg tablet 5 mg PO Q6H PRN severe 03/26/22 post-operative pain #6 tabs Current Visit Medications: Current Medications Generic Name Dose Route Start Last Admin Trade Name Freq PRN Reason Stop Dose Admin Acetaminophen 650 mg 03/26/22 07:40 Acetaminophen 325 Mg Tab PO Q4H PRN PRN Ringer's Solution 1,000 mls @ 80 mls/hr 03/26/22 06:00 IV 04/24/22 23:59 INFUSION EILEEN Cefazolin Sodium/Dextrose 2 gm in 50 mls @ 100 mls/hr 03/26/22 06:00 Ancef Duplex IVPB 03/26/22 16:00 PREOP [facility] IV Miscellaneous Supplies 1 each 03/26/22 06:00 Iv Access IV 04/24/22 23:59 DIRECTED EILEEN Oxycodone HCl 5 mg 03/26/22 07:40 Oxycodone 5 Mg Tab PO Q3H PRN PRN Pain Sodium Chloride 0 ml 03/26/22 06:00 Normal Saline Flush 10 Ml Syr IV 04/24/22 23:59 PRN PRN Sodium Chloride 0 ml 03/26/22 06:00 Normal Saline 10 Ml Vial IJ 04/24/22 23:59 DIRECTED PRN Sterile Water 0 ml 03/26/22 06:00 Water,Injection,Sterile 10 Ml Vial IJ 04/24/22 23:59 DIRECTED PRN [facility] Active Problems Active Problems: Problem Status Onset Code Lower urinary tract symptoms (LUTS) R39.9 Elevated PSA R97.20 Internal derangement of right knee M23.91 Right knee pain M25.561 Closed fracture of tibial plateau 11/05/20 S82.143A Arthritis of carpometacarpal (CMC) joint of right thumb M18.11 Arthritis of carpometacarpal (CMC) joint of left thumb M18.12 Rotator cuff impingement syndrome of left shoulder M75.42 Ventral hernia K43.9 Medical History Medical History (Updated 03/11/22 @ 11:36 by Lay Ye RN) Alcohol dependence in remission Genital warts Hyperlipidemia Hypertension Hypomagnesemia Impingement syndrome, shoulder, left Obesity JESSICA (obstructive sleep apnea) Pain in joint of left wrist Pain in joint of right wrist Prediabetes Skin lesion of face Syncope Umbilical hernia Venous rodriguez of lip Ventricular tachycardia Surgical History Surgical History (Updated 03/11/22 @ 11:36 by Lay Ye RN) History of vasectomy (~2003) Repair of inguinal hernia (~2021) pt unsure of date/year of surgery.HE S/P ventral herniorrhaphy (03/02/18) dr crowell Tobacco Smoking/Tobacco Use Status: Former Tobacco Use Alcohol Alcohol Intake: former Substance Use Substance use: Current Sobriety Substance use type: does not use Vital Signs and Lab Results Lab Results Blood Type / Crossmatch: No Data to Display Complete Blood Count: No Data to Display Complete Metabolic Panel: No Data to Display Liver Function Panel: No Data to Display Coagulation Panel: No Data to Display Cardiac Panel: No Data to Display Arterial Blood Gas: No Data to Display Venous Blood Gas: No Data to Display Pancreas Panel: No Data to Display Thyroid Panel: No Data to Display Infectious Disease: No Data to Display Blood Cultures: No Data to Display Toxicology Panel: No Data to Display Imaging and Studies Imaging and Studies Study information below may be from another EMR and interpreted by another provider. Please see original notes in EMR for more complete details. Echocardiogram Summary: *STUDY CONCLUSIONS* Summary: 1. Left ventricle: The cavity size was normal. Systolic function was normal. The estimated ejection fraction was 55-60%. 2. Mitral valve: There was mild regurgitation. 3. Left atrium: The atrium was moderately dilated. 4. Right ventricle: The cavity size was normal. Wall thickness was normal. Systolic function was normal. 5. Right atrium: The atrium was moderately dilated. 6. Atrial septum: No defect or patent foramen ovale was identified. 7. Pulmonary arteries: Pulmonary systolic pressure was in the range of 25mm Hg to 35mm Hg. 8. Inferior vena cava: The vessel was patent and normal in size. The respirophasic diameter changes were in the normal range (greater than or equal to 50%), consistent with normal central venous pressure. Anesthesia Assessment and Plan Anesthesia History Personal History: No History of Anesthesia Complications Family History: No Family History of Anesthesia Complications Exercise Tolerance Exercise Tolerance: Metabolic Equivalents>4 Pertinent Negatives Pertinent Negatives: No Symptoms of GERD, No Major Pulmonary Symptoms or Complaints and No History of CVA/TIA Cardiac & Pulmonary Exam Cardiac Exam: Normal S1/S2 Heart Sounds Pulmonary Exam: Clear Bilateral Breath Sounds Implantable Cardiac Device Does patient have a Pacemaker or an ICD?: No Airway Exam Known Difficult Airway: No Mallampati Class: 2 Mouth Opening: Normal (> 3cm) Thyromental Distance: Greater than 3 cm Neck Range of Motion: Full ROM Neck Circumference: Normal Teeth Condition: Removable Dentures/Plates Upper and Removable Dentures/Plates Lower ASA Classification ASA Score: ASA 3 Emergency Case?: No NPO Status NPO Status: NPO Clears >2 hours, Solids >8 hours Anesthesia Plan Resuscitation Status: Full Code Anesthesia Technique: General Anesthesia Airway Planned: LMA Monitors Used: Standard Monitors
[2022-03-26] MEDS: Lactated Ringers 1,000 ML 80 ML IV (09:50)
--- NOTE | 2022-03-26 09:54 | W.PM.HP.N ---
Date of service: 03/26/22 Time of Service: 10:15 Assessment and Plan Assessment and plan (1) Arthritis of carpometacarpal (CMC) joint of right thumb: Status: Acute Assessment and plan: Plan: He denies any recent Covid-19 infection. Educated patient on surgery covering surgical technique, recovery process, benefits and risks including but not limited to risk of infection, blood clot, damage to soft tissue/blood vessels/nerves in detail. After discussion patient gives verbal understanding of risks and elects to proceed with scheduling surgery. Patient had opportunity to have questions answered to their satisfaction. They will contact office if issues arise. Patient will continue to be scheduled for right CMC arthroplasty with Dr. Loera History of Present Illness Narrative: Mr. Ledbetter is a 61-year-old male who presents to hospital for right CMC DJD for surgical intervention. Reports he has continued to have discomfort along the right thumb for several years. Has tried to manage symptoms by previously having an injection on 11/11/21 which provided partial relief and by modifying activity. Due to his continued pain and known DJD he was offered and elected to proceed with surgery. Review of Systems Cardiovascular Cardiovascular: Denies chest pain, Denies rapid heart rate, Denies irregular heart rhythm, Denies dyspnea, Denies dyspnea on exertion and Denies slow heart rate Respiratory Respiratory: Denies cough, Denies dyspnea, Denies dyspnea on exertion and Denies wheezing Allergic/Immunologic Allergic/Immunologic: Denies wheezing PFSH All Active Problems (Updated 03/26/22 @ 09:33 by Nidia Bryant) Ventral hernia (Acute) Rotator cuff impingement syndrome of left shoulder (Acute) Arthritis of carpometacarpal (CMC) joint of left thumb (Acute) Arthritis of carpometacarpal (CMC) joint of right thumb (Acute) Right knee pain (Acute) Internal derangement of right knee (Acute) Elevated PSA (Acute) Lower urinary tract symptoms (LUTS) (Acute) Medical History (Updated 03/26/22 @ 09:33 by Nidia Bryant) Alcohol dependence in remission Genital warts Hyperlipidemia Hypertension Hypomagnesemia Impingement syndrome, shoulder, left Obesity JESSICA (obstructive sleep apnea) Pain in joint of left wrist Pain in joint of right wrist Prediabetes Skin lesion of face Syncope Umbilical hernia Venous rodriguez of lip Ventricular tachycardia pt doesnt remember this Surgical History History of vasectomy (~2003) Hx of colonoscopy Hx of thumb surgery left Repair of inguinal hernia (~2021) pt unsure of date/year of surgery.HE S/P ventral herniorrhaphy (03/02/18) dr crowell Social History Smoking/Tobacco Use Status: Former Tobacco Use Quit Date: 04/20/05 Smoking risk assessment performed?: Yes Alcohol Intake: former Drug use: Current Sobriety Substance use type: does not use Current gender identity: male Do you feel safe at home: Yes Do you feel safe in your relationship?: Yes Meds Allergies and Home Medications Allergies Allergy/AdvReac Type Severity Reaction Status Date / Time No Known Allergies Allergy Verified 03/26/22 09:29 Home Medications Medication Instructions Recorded Confirmed Type fluticasone propionate 50 1 spr NS PRN PRN 02/08/13 03/26/22 History mcg/actuation nasal spray,suspension amlodipine 5 mg tablet 5 mg PO DAILY AM 10/15/16 03/26/22 History atorvastatin 20 mg tablet 20 mg PO DAILY AM 10/15/16 03/26/22 History diphenhydramine 25 2 tab PO HS 10/15/16 03/26/22 History mg-acetaminophen 500 mg tablet (Tylenol PM Extra Strength) tamsulosin 0.4 mg capsule 0.4 mg PO HS 08/31/17 03/26/22 History acetaminophen 500 mg tablet 500 mg PO Q6H PRN pain #60 tabs 03/26/22 Rx ibuprofen 600 mg tablet 600 mg PO TID PRN pain #60 tabs 03/26/22 Rx naproxen sodium 220 mg tablet 440 mg PO BID PRN 03/26/22 03/26/22 History (Aleve) oxycodone 5 mg tablet 5 mg PO Q6H PRN severe 03/26/22 Rx post-operative pain #6 tabs Exam Const General: cooperative and no acute distress Resp Effort & Inspection: normal respiratory effort and able to speak in complete sentences Auscultation: clear to auscultation bilaterally, no rales, no rhonchi and no wheezes Cardio Heart Sounds: S1 normal, S2 normal, no murmurs and no rubs Results Last Vital Signs Temp 97.7 F 03/26/22 09:28 Pulse 83 03/26/22 09:28 Resp 15 03/26/22 09:28 BP 127/90 03/26/22 09:28 Pulse Ox 97 03/26/22 09:28
--- NOTE | 2022-03-26 10:16 | W.ANESPRE ---
General Info Date of Service Date Performed: 03/26/22 Height: 5 ft 9 in Weight: 107.9 kg Body Mass Index (BMI): 35.1 Surgical Procedure: Operation Date: 03/26/22 10:55 Proposed Procedure Side Surgeon p Thumb CMC Arthroplasty Right Cesar Loera MD Meds Allergies and Home Medications Allergies Allergy/AdvReac Type Severity Reaction Status Date / Time No Known Allergies Allergy Verified 03/26/22 09:29 Home Medication Medication Instructions Recorded fluticasone propionate 50 1 spr NS PRN PRN 02/08/13 mcg/actuation nasal spray,suspension amlodipine 5 mg tablet 5 mg PO DAILY AM 10/15/16 atorvastatin 20 mg tablet 20 mg PO DAILY AM 10/15/16 diphenhydramine 25 2 tab PO HS 10/15/16 mg-acetaminophen 500 mg tablet (Tylenol PM Extra Strength) tamsulosin 0.4 mg capsule 0.4 mg PO HS 08/31/17 acetaminophen 500 mg tablet 500 mg PO Q6H PRN pain #60 tabs 03/26/22 ibuprofen 600 mg tablet 600 mg PO TID PRN pain #60 tabs 03/26/22 naproxen sodium 220 mg tablet 440 mg PO BID PRN 03/26/22 (Aleve) oxycodone 5 mg tablet 5 mg PO Q6H PRN severe 03/26/22 post-operative pain #6 tabs Current Visit Medications: Current Medications Generic Name Dose Route Start Last Admin Trade Name Freq PRN Reason Stop Dose Admin Acetaminophen 650 mg 03/26/22 07:40 Acetaminophen 325 Mg Tab PO Q4H PRN PRN Ringer's Solution 1,000 mls @ 80 mls/hr 03/26/22 06:00 03/26/22 09:50 IV 04/24/22 23:59 80 mls/hr INFUSION EILEEN Administration Cefazolin Sodium/Dextrose 2 gm in 50 mls @ 100 mls/hr 03/26/22 06:00 Ancef Duplex IVPB 03/26/22 16:00 PREOP EILEEN IV Miscellaneous Supplies 1 each 03/26/22 06:00 Iv Access IV 04/24/22 23:59 DIRECTED EILEEN Oxycodone HCl 5 mg 03/26/22 07:40 Oxycodone 5 Mg Tab PO Q3H PRN PRN Pain Sodium Chloride 0 ml 03/26/22 06:00 Normal Saline Flush 10 Ml Syr IV 04/24/22 23:59 PRN PRN Sodium Chloride 0 ml 03/26/22 06:00 Normal Saline 10 Ml Vial IJ 04/24/22 23:59 DIRECTED PRN Sterile Water 0 ml 03/26/22 06:00 Water,Injection,Sterile 10 Ml Vial IJ 04/24/22 23:59 DIRECTED PRN PFSH Active Problems Active Problems: Problem Status Onset Code Ventral hernia K43.9 Rotator cuff impingement syndrome of left shoulder M75.42 Arthritis of carpometacarpal (CMC) joint of left thumb M18.12 Arthritis of carpometacarpal (CMC) joint of right thumb M18.11 Closed fracture of tibial plateau 11/05/20 S82.143A Right knee pain M25.561 Internal derangement of right knee M23.91 Elevated PSA R97.20 Lower urinary tract symptoms (LUTS) R39.9 Medical History Medical History (Updated 03/26/22 @ 09:33 by Nidia Bryant) Alcohol dependence in remission Genital warts Hyperlipidemia Hypertension Hypomagnesemia Impingement syndrome, shoulder, left Obesity JESSICA (obstructive sleep apnea) Pain in joint of left wrist Pain in joint of right wrist Prediabetes Skin lesion of face Syncope Umbilical hernia Venous rodriguez of lip Ventricular tachycardia pt doesnt remember this Surgical History Surgical History History of vasectomy (~2003) Hx of colonoscopy Hx of thumb surgery left Repair of inguinal hernia (~2021) pt unsure of date/year of surgery.HE S/P ventral herniorrhaphy (03/02/18) dr crowell Tobacco Smoking/Tobacco Use Status: Former Tobacco Use Alcohol Alcohol Intake: former Substance Use Substance use: Current Sobriety Substance use type: does not use Vital Signs and Lab Results Vital Signs Most Recent Vital Signs in EMR: Most Recent Vital Signs Temp Pulse Resp BP Pulse Ox 36.5 C 83 15 127/90 97 03/26/22 09:28 03/26/22 09:28 03/26/22 09:28 03/26/22 09:28 03/26/22 09:28 Lab Results Blood Type / Crossmatch: No Data to Display Complete Blood Count: No Data to Display Complete Metabolic Panel: No Data to Display Liver Function Panel: No Data to Display Coagulation Panel: No Data to Display Cardiac Panel: No Data to Display Arterial Blood Gas: No Data to Display Venous Blood Gas: No Data to Display Pancreas Panel: No Data to Display Thyroid Panel: No Data to Display Infectious Disease: No Data to Display Blood Cultures: No Data to Display Toxicology Panel: No Data to Display Imaging and Studies Imaging and Studies Study information below may be from another EMR and interpreted by another provider. Please see original notes in EMR for more complete details. Echocardiogram Summary: *STUDY CONCLUSIONS* Summary: 1. Left ventricle: The cavity size was normal. Systolic function was normal. The estimated ejection fraction was 55-60%. 2. Mitral valve: There was mild regurgitation. 3. Left atrium: The atrium was moderately dilated. 4. Right ventricle: The cavity size was normal. Wall thickness was normal. Systolic function was normal. 5. Right atrium: The atrium was moderately dilated. 6. Atrial septum: No defect or patent foramen ovale was identified. 7. Pulmonary arteries: Pulmonary systolic pressure was in the range of 25mm Hg to 35mm Hg. 8. Inferior vena cava: The vessel was patent and normal in size. The respirophasic diameter changes were in the normal range (greater than or equal to 50%), consistent with normal central venous pressure. Anesthesia Assessment and Plan Anesthesia History Personal History: No History of Anesthesia Complications Family History: No Family History of Anesthesia Complications Exercise Tolerance Exercise Tolerance: Metabolic Equivalents>4 Pertinent Negatives Pertinent Negatives: No Symptoms of GERD, No Major Cardiovascular Symptoms or Complaints and No Major Pulmonary Symptoms or Complaints Cardiac & Pulmonary Exam Cardiac Exam: Normal S1/S2 Heart Sounds Pulmonary Exam: Clear Bilateral Breath Sounds Implantable Cardiac Device Does patient have a Pacemaker or an ICD?: No Airway Exam Known Difficult Airway: No Mallampati Class: 2 Mouth Opening: Normal (> 3cm) Thyromental Distance: Greater than 3 cm Neck Range of Motion: Full ROM Neck Circumference: Normal Teeth Condition: Removable Dentures/Plates Upper and Removable Dentures/Plates Lower ASA Classification ASA Score: ASA 2 Emergency Case?: No NPO Status NPO Status: NPO Clears >2 hours, Solids >8 hours Anesthesia Plan Resuscitation Status: Full Code Anesthesia Technique: General Anesthesia Airway Planned: LMA Monitors Used: Standard Monitors
[2022-03-26] MEDS: ceFAZolin 2 GM/50 ML BAG IVPB (11:28)
[2022-03-26] MEDS: Bupivacaine 0.25% Pres-Free 30 ML VIAL (11:44)
--- NOTE | 2022-03-26 12:45 | DI.RAD_ITS ---
Exam(s) XR WRIST RT COMPLETE EXAM: XR WRIST RT COMPLETE CLINICAL HISTORY: cmc wrist TECHNIQUE: 2D and realtime digital imaging was performed. COMPARISON: No exams were available for comparison FINDINGS: C-arm fluoroscopy was utilized by Dr. Loera. Please see the procedure note. Hard copy shows need le placement overlying the greater multangular 1st metacarpal joint. IMPRESSION: RADIATION DOSE DELIVERED: Jacob,r=0.0024 mGy Total DLP
--- NOTE | 2022-03-26 13:01 | ROE_ITS ---
Date of service: 03/26/22 Time of Service: 12:20 Operative Note Operative Note DATE OF PROCEDURE: 03/26/22 PRE-OP DIAGNOSIS: Right Thumb CMC Arthritis POST-OP DIAGNOSIS: same PROCEDURE: Right trapezial resection arthroplasty with suture suspensionplasty SURGEON: Cesar Loera EQUAL OPPORTUNITY COUNSELOR: [place] ANESTHESIA TYPE: General LMA/ETT Refer to Anesthesia Record ESTIMATED BLOOD LOSS: 5 PATHOLOGY: none sent TOURNIQUET TIME: 25 COMPLICATIONS: None Patient was transported to: PACU Patient's condition: stable Indications: Kaushal is a 61 year old male who has had symptoms of thumb CMC arthritis with pain and decreased mobility. Nonoperative treatment options had been trialed. Given their failure, I offered operative intervention. I reviewed the technical details. I reviewed the risk of the procedure to include bleeding, infection, pain, stiffness, instability, subsidence, damage to neighboring arteries, damage to the superficial radial nerve, and weakness. Despite these risks, the patient elected to proceed. Findings: There is notable arthrosis between the trapezium and the first metacarpal. There are large osteophytes around the entirety of the trapezium. Procedure Description: Kaushal was greeted in the preoperative holding area. Name and surgical site were confirmed. The history and physical was completed. The consent was reviewed the patient and signed. Kaushal was taken back to the operating room. The patient was placed and monitored anesthesia care. The right hand and wrist was then prepped with ChloraPrep and draped in a standard fashion after a nonsterile tourniquet was placed high up onto the arm. Prophylactic antibiotics in the form of cefazolin were administered. A timeout was performed for safe surgery. The surgical site was drawn on the skin overlying the dorsal radial border of the wrist. The planned surgical field was anesthetized with 0.25% bupivacaine with epinephrine. The limb was then exsanguinated and a tourniquet was inflated. A 3 cm incision was made longitudinally over the radial wrist from the level of the radial styloid to just past the base of the first metacarpal. The skin was incised only. The deep tissue and subcutaneous fat was dissected with a tenotomy scissors trying to protect branches of the superficial radial nerve. Any branches that were identified were retracted out of the way. The first compartment extensor tendons were then identified. The first extensor compartment was released. The interval between EPL and EPB was identified. The base of the first metacarpal was palpated. A needle was placed into the joint between the first metacarpal and the trapezium. A single x-ray was used to confirm appropriate positioning. The capsule of the trapezium was then incised. The radial border of the bone was identified. Soft tissues around trapezium were dissected bluntly to allow relaxation of vital arterial structures traversing the trapezium. Using a [place] blade the capsule was elevated off the trapezium in a subperiosteal fashion. Once it appeared to have all the capsular attachments released, the trapezium was then removed using a rongeur. The wound was inspected to make sure all portions of the trapezium were removed. X-ray was used to confirm appropriate removal of all bony fragments. The wound was then thoroughly irrigated. Using a 2-0 FiberWire then performed a suture suspension plasty. This was done by incorporating capsule and attachments of the APL at the base of the first metacarpal and creating a sling connected to the deep flexor carpi radialis tendon seen traversing deep within the wound towards the second metacarpal. This was done twice to create a crossing network of 2-0 suture. This was then tied overlying the base of the first metacarpal making sure not to over tighten and hourglass the tendons. This provided support to the first metacarpal to prevent any excessive subsidence. The tourniquet was released and there was no significant bleeding. The capsule of the trapezium was reapproximated with a 3-0 Vicryl. The deep tissues were closed with a 3-0 Vicryl and the skin was closed with a running 4-0 Monocryl in a subcuticular fashion. This was reinforced with skin glue. The hand was dressed with 4 x 4's, web roll, and EBENEZER wrap to make a soft thumb spica splint. All counts were correct. He was transferred back to PACU in a stable condition.
[2022-03-26] MEDS: oxyCODONE 5 MG TAB PO (13:13)
--- NOTE | 2022-03-26 13:54 | W.ANESPOSTOP ---
Postoperative Evaluation Date, Time and Location Date Performed: 03/26/22 Time Performed: 13:55 Patient Location: Day Surgery Unit Vital Signs Most Recent Imported Vital Signs: Most Recent Vital Signs Temp Pulse Resp BP Pulse Ox 36 C L 61 16 200/98 H 97 03/26/22 13:14 03/26/22 13:14 03/26/22 13:14 03/26/22 13:14 03/26/22 13:14 Most Recent Manually Entered Vital Signs: Adult Blood Pressure: 165/95 Heart Rate: 65 Respirations: 18 Oxygen Saturation (%): 95 Temperature (C): 36 C Pain Score (0-10 Scale): 5 Pain Score Most Recent Pain Score: Most Recent Pain Score Pain Level 6 03/26/22 13:14 Assessment Mental Status: Awake (Alert & Oriented to Patient Baseline) Airway and Respiratory Function: Patent airway with normal (patient baseline) respiratory exam Cardiovascular Function: Hemodynamically Stable Hydration Status: Adequately Hydrated Nausea & Vomiting: No Nausea or Vomiting Pain: Pain is tolerable per patient (Reduced to a 5/10. Patient reports tolerable ) Peripheral Nerve Block: Patient did not receive a nerve block
== END 2022-03-26 14:08 | disposition home or self-care (01) ==
PROVIDERS: PCP Family Medicine; Visit Provider Student in an Organized Health Care Education/Training Program
PROC: (CPT 25447; principal; 2022-03-26 10:45)
DX: M18.11 Unilateral primary osteoarthritis of first carpometacarpal joint, right hand (principal); I10 Essential (primary) hypertension; R73.03 Prediabetes; E78.5 Hyperlipidemia, unspecified
CPT/HCPCS: 25447; 26480; 73110; J0690; J1100; J1885; J2405; J2704

== ENCOUNTER 2023-02-16 11:48 | Outpatient (CLI) | payer BC, SELFPAY ==
--- NOTE | 2023-02-16 10:00 | DI.RAD_ITS ---
Exam(s) XR KNEE LT 3V AP,LAT,LUCERO EXAM: XR KNEE LT 3V AP,LAT,LUCERO CLINICAL HISTORY: eval L knee pain, OA, h/o frx. TECHNIQUE: 2D digital imaging was performed. Three views. COMPARISON: CR XR KNEE LT 2V AP,LAT from 01/28/2021 FINDINGS: BONES: No acute fracture is present. Minimal deformity related to old lateral tibial plateau fractu re mild spurring at the tibial spines and femoral intercondylar notch. Mild spurring at the articula r aspect of the patella. No bony destructive lesion is seen. JOINTS: The knee is normally aligned. No joint effusion is seen. Mild narrowing of the lateral femo ral tibial joint space. SOFT TISSUE: Normal. IMPRESSION: Mild degenerative changes, greatest at lateral femoral tibial joint. DATA REPOSITORY: RADIATION DOSE DELIVERED:
== END 2023-02-16 11:49 | disposition home or self-care (01) ==
LOC: DIORS 11:49
PROVIDERS: PCP Family Medicine; Visit Provider Student in an Organized Health Care Education/Training Program
DX: M17.12 Unilateral primary osteoarthritis, left knee (principal); Z98.890 Other specified postprocedural states
CPT/HCPCS: 73562

== ENCOUNTER 2023-02-26 16:31 | Outpatient (REF) | payer BC, SELFPAY ==
[2023-02-26 19:08] LABS: Anion Gap 10.1 mmol/L (3-11); BUN 28 mg/dL (7-18); CO2 24.9 mmol/L (21.0-32.0); CREATININE 0.9 mg/dL (0.70-1.30); Calcium 9.1 mg/dL (8.5-10.1); Calculated LDL 125 mg/dL (<100); Chloride 103 mmol/L (98-107); Cholesterol 248 mg/dL (<200); Estimated GFR 95.37 (mL/min/1.73m2); Glucose 90 mg/dL (74-106); HDL Cholesterol 46 mg/dL (40-60); Potassium 4.1 mmol/L (3.5-5.1); Sodium 138 mmol/L (136-145); Triglyceride 386 mg/dL (<150)
[2023-02-26 19:18] LABS: Hemoglobin A1C 5.8 % (<5.7)
== END 2023-02-26 16:32 | disposition home or self-care (01) ==
LOC: NCHCN 16:31
PROVIDERS: PCP Family Medicine; Visit Provider Family Medicine
DX: Z00.00 Encounter for general adult medical examination without abnormal findings (principal); Z12.11 Encounter for screening for malignant neoplasm of colon
CPT/HCPCS: 80048; 80061; 83036

== ENCOUNTER 2024-01-21 15:33 | Outpatient (REF) | payer BC, SELFPAY ==
[2024-01-21 18:36] LABS: ALT 35 U/L (16-63); AST 25 U/L (15-37); Albumin 4.2 g/dL (3.4-5.0); Alkaline Phosphatase 93 U/L (46-116); Anion Gap 7.3 mmol/L (3-11); BUN 23 mg/dL (7-18); CO2 26.7 mmol/L (21.0-32.0); CREATININE 0.9 mg/dL (0.70-1.30); Calcium 9.3 mg/dL (8.5-10.1); Calculated LDL 144 mg/dL (<100); Chloride 104 mmol/L (98-107); Cholesterol 237 mg/dL (<200); Estimated GFR 94.78 (mL/min/1.73m2); Glucose 98 mg/dL (74-106); HDL Cholesterol 55 mg/dL (40-60); Potassium 3.9 mmol/L (3.5-5.1); Sodium 138 mmol/L (136-145); Total Protein 7.6 g/dL (6.4-8.2); Triglyceride 190 mg/dL (<150)
== END 2024-01-21 15:34 | disposition home or self-care (01) ==
LOC: NCHCN 15:33
PROVIDERS: PCP Family Medicine; Visit Provider Nurse Practitioner Family
DX: E78.5 Hyperlipidemia, unspecified (principal); I10 Essential (primary) hypertension
CPT/HCPCS: 80053; 80061

== ENCOUNTER 2024-09-21 14:12 | Outpatient (REF) | payer MEDICARE, SELFPAY ==
[2024-09-21 15:55] LABS: Hemoglobin A1C 6.1 % (<5.7)
[2024-09-21 16:06] LABS: ALT 30 U/L (16-63); AST 25 U/L (15-37); Albumin 4.4 g/dL (3.4-5.0); Alkaline Phosphatase 101 U/L (46-116); Anion Gap 6.4 mmol/L (3-11); BUN 27 mg/dL (7-18); Bilirubin, Total 0.8 mg/dL (0.2-1.0); CO2 28.6 mmol/L (21.0-32.0); CREATININE 1.2 mg/dL (0.70-1.30); Calcium 9.3 mg/dL (8.5-10.1); Calculated LDL 107 mg/dL (<100); Chloride 104 mmol/L (98-107); Cholesterol 187 mg/dL (<200); Glucose 103 mg/dL (74-106); HDL Cholesterol 49 mg/dL (>or=40); Sodium 139 mmol/L (136-145); Total Protein 7.4 g/dL (6.4-8.2); Triglyceride 155 mg/dL (<150)
== END 2024-09-21 14:13 | disposition home or self-care (01) ==
LOC: NCHCN 14:12
PROVIDERS: PCP Nurse Practitioner Family; Visit Provider Nurse Practitioner Family
DX: E78.5 Hyperlipidemia, unspecified (principal); R73.03 Prediabetes; Z12.5 Encounter for screening for malignant neoplasm of prostate
CPT/HCPCS: 80053; 80061; 84153; 83036